=== PATIENT | female | born 1985 | race Caucasian/White ===

== ENCOUNTER 2019-08-12 17:53 | Emergency (ER) | payer BC ==
--- NOTE | 2019-08-12 18:11 | PDOC ---
History of Present Illness - General Chief Complaint: Lightheaded Stated Complaint: DIZZY AND SHORT OF BREATH FOR 3 WEEKS Time Seen by Provider: 08/12/19 18:03 - History of Present Illness Initial Comments: The pt is a 33F w/ no reported PMH who presents for evaluation of 3 weeks of dizziness/malaise. She reports having intermittent episodes lasting several weeks at a time. She states they generally begin after a viral illness and last 2-6 weeks at a time. Her last viral illness was approximately 4 weeks ago. She reports her dizziness as a 'foggy' feeling. The pt states that she is worried that she may have a brain tumor (because her mother from one) or that she may be anemic. She has not tried taking anything for her symptoms. She denies falls, head trauma, urinary incontinence, sensation changes, facial droop, or focal weakness. 08/12/19 18:26 Past History - Past Medical History Allergies/Adverse Reactions: Allergies Allergy/AdvReac Type Severity Reaction Status Date / Time No Known Allergies Allergy Verified 01/24/18 21:32 Home Medications: Ambulatory Orders NK [No Known Home Medication] 08/12/19 Asthma: No Cancer: No Cardiac Disorders: No COPD: No Diabetes: No HTN: No Seizures: No Thyroid Disease: No - Psycho Social/Smoking Cessation Hx Smoking History: Current every day smoker Have you smoked in the past 12 months: Yes Number of Cigarettes Smoked Daily: 10 'Breaking Loose' booklet given: 01/24/18 Hx Alcohol Use: Yes (WEEKENDS) Drug/Substance Use Hx: No Substance Use Type: None Hx Substance Use Treatment: No Review of Systems - Review of Systems Able to Perform ROS?: Yes Comments:: GENERAL/CONSTITUTIONAL: No fever or chills HEAD, EYES, EARS, NOSE AND THROAT: No change in vision. No change in hearing. No sore throat CARDIOVASCULAR: No chest pain or shortness of breath RESPIRATORY: Denies cough, hemoptysis GASTROINTESTINAL: No nausea, vomiting, diarrhea or constipation GENITOURINARY: No dysuria, frequency, or change in urination MUSCULOSKELETAL: No joint or muscle swelling or pain. No neck or back pain SKIN: No rash NEUROLOGIC: No headache, loss of consciousness, or change in strength/sensation ENDOCRINE: No increased thirst. No abnormal weight change HEMATOLOGIC/LYMPHATIC: No anemia, easy bleeding, or history of blood clots ALLERGIC/IMMUNOLOGIC: No hives or skin allergy 08/12/19 18:10 Is the patient limited Somali proficient: No *Physical Exam - Physical Exam GENERAL: Awake, alert, and oriented to person/place/time, in no acute distress HEAD: No signs of trauma, normocephalic, atraumatic EYES: PERRLA, EOMI, sclera anicteric, conjunctiva clear ENT: Hearing grossly normal, nares patent, oropharynx clear without exudates. Moist mucosa LUNGS: No distress, speaks in full sentences, clear to auscultation bilaterally HEART: Regular rate and rhythm, normal S1 and S2, no murmurs appreciated, peripheral pulses normal and equal bilaterally ABDOMEN: Soft, nontender, normoactive bowel sounds. No guarding, no rebound EXTREMITIES: Normal inspection, Normal range of motion, no edema. No clubbing or cyanosis NEUROLOGICAL: Cranial nerves II through XII grossly intact. Normal speech, normal gait, no focal sensorimotor deficits, strength 5/5 throughout SKIN: Warm, Dry 08/12/19 18:10 ED Treatment Course - LABORATORY CBC & Chemistry Diagram: 08/12/19 18:38 Medical Decision Making - Medical Decision Making The pt is a 33F w/ no reported PMH who presents for evaluation of 3 weeks of feeling 'foggy' expressing concern of brain mass and anemia ED Course CMP, CBC, TSH, Upreg CT head 08/12/19 18:[address] obtained, pending read on Imaging On-Call Pt signed out to night team 08/12/19 18:58 Discharge - Discharge Information Problems reviewed: Yes Clinical Impression/Diagnosis: Dizziness Condition: Stable - Admission No - Follow up/Referral - Patient Discharge Instructions - Post Discharge Activity
[2019-08-12 18:14] VITALS: BP 139/97; PULSE 100; TEMP 98.1; BMI 27.3
[2019-08-12 19:06] LABS: BASO % 1.1 % (0-2.0); EOS % 3.2 % (0-4.5); HEMATOCRIT 35.3 % (32.4-45.2); HEMOGLOBIN 11.4 GM/dL (10.7-15.3); LYMPH % 30.2 % (8-40); MCH 24.7 pg (25.7-33.7); MCHC 32.2 g/dl (32.0-36.0); MEAN CELL VOLUME 76.8 fl (80-96); MEAN PLT VOLUME 8.5 fl (7.5-11.1); MONO % 8.4 % (3.8-10.2); NEUT % 57.1 % (42.8-82.8); PLATELET COUNT 280 K/MM3 (134-434); RBC 4.59 M/mm3 (3.60-5.2); RDW 17.6 % (11.6-15.6); WHITE BLOOD COUNT 6.1 K/mm3 (4.0-10.0)
[2019-08-12 19:10] LABS: ALBUMIN 4.2 g/dl (3.4-5.0); BILIRUBIN,TOTAL 0.5 mg/dl (0.2-1); CALCIUM 9.6 mg/dl (8.5-10); CREATININE 0.6 mg/dl (0.55-1.3); MAGNESIUM 1.9 mg/dL (1.8-2.4); POTASSIUM 4.2 mmol/L (3.5-5.1); TOT PROT 7.5 g/dl (6.4-8.2)
--- NOTE | 2019-08-12 19:27 | PDOC ---
*Physical Exam - Vital Signs Last Vital Signs Temp Pulse Resp BP Pulse Ox 98.1 F 100 H 16 139/97 100 08/12/19 17:55 08/12/19 17:55 08/12/19 17:55 08/12/19 17:55 08/12/19 17:55 ED Treatment Course - LABORATORY CBC & Chemistry Diagram: 08/12/19 18:38 08/12/19 18:26 - ADDITIONAL ORDERS Additional order review: Laboratory Results 08/12/19 08/12/19 18:26 18:26 Sodium 136 Potassium 4.2 Chloride 104 Carbon Dioxide 27 Anion Gap 5 L BUN 10.0 Creatinine 0.6 Est GFR (CKD-EPI)AfAm 140.77 Est GFR (CKD-EPI)NonAf 121.46 Random Glucose 99 Calcium 9.6 Magnesium 1.9 Total Bilirubin 0.5 AST 15 ALT 15 Alkaline Phosphatase 49 Total Protein 7.5 Albumin 4.2 Urine HCG, Qual Negative 08/12/19 18:38 RBC 4.59 MCV 76.8 L MCHC 32.2 RDW 17.6 H MPV 8.5 Neutrophils % 57.1 D Lymphocytes % 30.2 D Monocytes % 8.4 Eosinophils % 3.2 D Basophils % 1.1 ED Progress Note - Progress Note Progress Note: 08/12/19 19:35 Care of this patient was transferred to me from Dr. Miranda at 1900 hrs. Patient is a 33-year-old female with anxiety about her health. Patient is convinced that she is anemic and has a brain tumor. Lab work was sent as well as a head CT that was done Head CT was normal Lab work shows no anemia however her MCV is a little bit low which I pointed out to her and referred her for follow-up. Discharge - Discharge Information Problems reviewed: Yes Clinical Impression/Diagnosis: Dizziness Condition: Stable Disposition: HOME - Follow up/Referral - Patient Discharge Instructions Additional Instructions: Your head CT was normal Your blood work shows no evidence of anemia at this time however your MCV was a little low which indicates you may be a little low on iron so it is important that you follow-up. I have put in for a referral for follow-up somebody will be calling you to schedule an appointment for follow-up with 1 of our clinics. Return to the emergency department immediately with ANY new, persistent or worsening symptoms. Continue any medications as previously prescribed by your physician. You should follow up with your primary doctor as soon as possible regarding today's emergency department visit. . Please make sure your doctor reviews the results of your emergency evaluation. Thank you for coming to the Emergency Department today for your care. It was a pleasure to see you today. Please note that your evaluation is INCOMPLETE until you follow-up with your doctor. - Post Discharge Activity
== END 2019-08-12 19:41 | disposition home or self-care (01) ==
LOC: FER 17:53
DX: R42 Dizziness and giddiness (principal); F17.210 Nicotine dependence, cigarettes, uncomplicated
CPT/HCPCS: 36415; 70450-TC; 80053; 83735; 84443; 84703; 85025; 99284-25